=== PATIENT | female | born 1965 | race Caucasian/White ===

== ENCOUNTER 2024-04-11 08:30 | Outpatient (AMB) | payer MEDICAID, SELFPAY ==
[2024-04-11 09:01] VITALS: BP 113/74; PULSE 71; RESP 17; TEMP 36.1; O2SAT 100; BMI 31.1
--- NOTE | 2024-04-11 09:01 | PD.ORTHCLVIS ---
Vital signs 04/11/24 09:01 Height 1.55 m Height Method Stated Weight 74.843 kg Weight Measurement Method Standing Scale BMI 31.1 BP 113/74 Blood Pressure Source Automatic Cuff Blood Pressure Location Right Upper Arm Position Sitting Respiration 17 Pulse 71 Pulse Source Monitor Temp 96.9 F Temp Source Temporal Artery Scan Pulse Oximetry (%) 100 Oxygen Delivery Method Room Air Med/Allergies Allergies & Medications Allergies NKA* Allergy (Uncoded 04/11/24 09:01) Medication Reconciliation atorvastatin 20 mg tablet 20 mg PO QDAY 04/11/24 [History Confirmed 04/11/24] levothyroxine 50 mcg capsule 50 mcg PO QDAY 04/11/24 [History Confirmed 04/11/24] meloxicam 7.5 mg tablet 7.5 mg PO QDAY #45 tabs 04/11/24 [Rx] Subjective Visit Visit for: new patient and knee Immunization / Flu Flu Vaccine in the Last 12 Months: No Flu Vaccine Exclusion Criteria: No Exclusion Criteria History of Present Illness Chief complaint: left KNEE PAIN Date of injury / onset of symptoms: 6 MONTHS Patient is a pleasant 58yo Female with left greater than right knee pain. This been ongoing for over a year. She had a fall and this is when the pain started. She got any injections. She is tried anti-inflammatories. She has not tried physical therapy Personal History Occupation: UNEMPLOYED Pain Pain level (0-10): 6 Pain duration: COMES AND GOES Pain location: inside (medial), outside (lateral), anterior and posterior Pain quality: sharp Pain timing: increases with activity and stairs Associated signs & symptoms: weakness Ambulatory data Ambulatory device: none Treatments Improvement with previous injections: No Improvement with PT: No Improvement with NSAIDS: n/a Review of Systems Review of Systems: All systems negative unless otherwise noted in HPI. Exam Exam Patient is in no acute distress and is cooperative with the examination today. Breathing is nonlabored. In no respiratory distress. Bilateral extremities were evaluated and demonstrates sensation intact to light touch. Palpable pedal pulses are present. No significant edema is present. Bilateral hips were examined. The patient has no pain with log roll of the hips. Internal rotation to 30 degrees and external rotation to 30 degrees is painless. Negative FADIR. The left knee was examined. The left knee is in [varus] alignment. Range of motion from [0-115] degrees. Knee is stable to varus and valgus as well as AP translation with <5mm. Patient has a [negative] Mc[place]rays. There is [no] pain with patellofemoral compression and [no] crepitus noted. The knee is [tender] to palpation [medially]. The right knee was also examined. The right knee is in [varus] alignment. Range of motion from [0-120] degrees. Knee is stable to varus and valgus as well as AP translation with <5mm. Patient has a [negative] Mc[place]rays. There is [no] pain with patellofemoral compression and [no] crepitus noted. The knee is [tender] to palpation [medially]. An MRI demonstrates a degenerative meniscal tear of the medial knee as well as an subchondral fracture that is nondisplaced. Assessment and Plan Problem List (1) Degenerative arthritis of knee, bilateral: Status: Acute Plan: Patient is a 58-year-old female with bilateral knee pain worse on the left. She has a degenerative meniscal tear. We discussed that this is typically treated nonoperatively. I like to get weightbearing x-rays to see how bad her arthritis is. 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: Status: Acute Office Procedures GNS Level of Care Nursing/Assessment Patient Status: Established Patient Nursing Assessment/Reassesment: Medication Reconciliation, Update PMH in EMR and Vital Signs Coordination of Care: Complex Care and Chronic Disease 1-5, Education Complex Pt/Fam, Consent,records obtained, informed consent, Results/Orders obtained and Staff clarify orders Special Needs: Language special needs Established Patient Charge Established Patient Point Assignment: 95 Established Patient Point Charge: EP Level 3 (80-115) Past Medical History Past Medical History Have you ever been diagnosed with any of the following: Endocrine Problems Hypothyroidism: Yes
== END 2024-04-11 09:41 | disposition home or self-care (01) ==
LOC: HODSRG 08:30
PROVIDERS: Supervising Provider Orthopaedic Surgery Adult Reconstructive Orthopaedic Surgery; Visit Provider Orthopaedic Surgery Adult Reconstructive Orthopaedic Surgery
DX: M17.0 Bilateral primary osteoarthritis of knee (principal); M25.562 Pain in left knee; M25.561 Pain in right knee; S83.242D Other tear of medial meniscus, current injury, left knee, subsequent encounter; X58.XXXD Exposure to other specified factors, subsequent encounter; E03.9 Hypothyroidism, unspecified
CPT/HCPCS: 99213; G0463